=== PATIENT | female | born 1990 | race Two or more races ===

== ENCOUNTER 2017-05-15 17:26 | Emergency (ER) | payer OTHER ==
[2017-05-15 17:49] VITALS: BP 131/75; PULSE 75; RESP 18; TEMP 98.6
--- NOTE | 2017-05-15 18:01 | ED ---
General Adult HPI - General Chief complaint: ENT Stated complaint: Sore throat, fever Time Seen by Provider: 05/15/17 17:40 - History of Present Illness Initial comments: This is a 26-year-old female who presents to the emergency department today with chief complaint of sore throat. Patient states that last Friday she tested positive for strep throat at an urgent care. They treated her with amoxicillin. Patient states she was not feeling any better and returned to urgent care on Friday. They switched her antibiotic to azithromycin and prescribed prednisone 20 mg for 5 days. Patient presents today because she is not feeling any better. She continues to have a severe sore throat and fevers. She also complains of ear pain, nausea, vomiting and diarrhea and myalgias. Patient reports she has been unable to eat and has lost 10 pounds within the last week. Denies chest pain, shortness of breath, abdominal pain, dysuria or hematuria, numbness or tingling, headache or vision changes. - Related Data Home Medications Medication Instructions Recorded Confirmed Pnv,Calcium 72/Iron/Folic Acid 1 each PO 06/07/15 06/07/15 [ Plus Tablet] Previous Rx's Medication Instructions Recorded Acetaminophen-Codeine 300-30mg 1 each PO Q4HR PRN #30 tab 06/11/15 [Tylenol w/codeine #3] Ibuprofen [Motrin] 600 mg PO Q6HR PRN #60 tab 06/11/15 Allergies Allergy/AdvReac Type Severity Reaction Status Date / Time No Known Allergies Allergy Verified 05/15/17 17:49 Review of Systems ROS Statement: Those systems with pertinent positive or pertinent negative responses have been documented in the HPI. ROS Other: All systems not noted in ROS Statement are negative. 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 HEENT: Head atraumatic, normocephalic. Pupils are equal, round and reactive to light. Extraocular movements intact. Posterior oropharynx erythematous with tonsillar swelling and exudates present. Neck: Supple. Normal ROM. Tender anterior and posterior cervical adenopathy. Cardiovascular: Regular rate and rhythm. No murmurs, rubs or gallops. Chest symmetrical. Respiratory: Lungs clear to auscultation bilaterally. No wheezes, rales or rhonchi. Normal respiratory effort with no use of accessory muscles. Abdomen: Soft, non-tender, non-distended. No rigidity, rebound or guarding. Normal bowel sounds in all 4 quadrants. Musculoskeletal: Normal ROM, no tenderness. Pulses 2+ equal and palpable bilaterally. Skin: [place], warm and dry without rashes or lesions. Neurological: Alert and oriented x3. CN II-XII grossly intact. Speech is fluent and answers are appropriate. No focal neuro deficits. Psychiatric: Normal mood and affect. No overt signs of depression or anxiety noted. Course Vital Signs 05/15/17 17:46 Temperature 98.6 F Pulse Rate 75 Respiratory 18 Rate Blood Pressure 131/75 O2 Sat by Pulse 98 Oximetry Medical Decision Making - Medical Decision Making Group A rapid strep test was negative. This case was discussed with Dr. Ramos , attending physician. Patient will receive IM penicillin G. This medication will be administered in the event that group A strep is positive. Patient will be discharged home. Patient is in agreement to treatment and all questions were answered. - Lab Data Lab Results 05/15/17 Range/Units 17:53 Group A Strep Rapid Negative (Negative) Disposition Clinical Impression: Acute pharyngitis Disposition: HOME SELF-CARE Condition: Good Instructions: Pharyngitis (ED) Additional Instructions: Please follow up with primary care provider within 1-2 days. Return to emergency department if symptoms should worsen or any concerns arise. Referrals: None,Stated [REFERRING] - 1-2 days Time of Disposition: 18:13
[2017-05-15] MEDS ORDERED: PENICILLIN G BENZATHINE 1,200,000 UNIT/2 ML SYRINGE IM STA (18:21)
== END 2017-05-15 18:54 | disposition home or self-care (01) ==
LOC: EC 17:26
DX: J02.9 Acute pharyngitis, unspecified (principal); Z87.891 Personal history of nicotine dependence; Z79.899 Other long term (current) drug therapy
CPT/HCPCS: 99283 ×2; 96372 ×2; 87081; 87430; J0561

== ENCOUNTER 2018-10-03 15:56 | Observation (INO) | payer OTHER ==
[2018-10-03] MEDS ORDERED: FAMOTIDINE 20 MG/2 ML VIAL IV STA (16:24)
--- NOTE | 2018-10-03 16:30 | ED ---
Abdominal Pain HPI - General Chief Complaint: Abdominal Pain Stated Complaint: Abd and back pain Time Seen by Provider: 10/03/18 16:13 Source: patient Mode of arrival: ambulatory Limitations: no limitations - History of Present Illness Initial Comments: 28 yo female presenting with right upper quadrant sharp stabbing abdominal pain that radiates bilaterally to her flanks, that has been present intermittently for the past 6 months, is worsened by food, and is associated with nausea vomiting and diarrhea. She states currently has no pain or nausea or diarrhea but states that her mother recently had her gallbladder out and her symptoms were similar. She admits to a remote history of a fever 1 month prior but has been afebrile recently. Last menstrual period was 2 weeks ago. She denies any concern for . Denies any history of inflammatory bowel disease. Denies any chest pain or short of breath. States the pain has been increasing in frequency and severity and today it was the worse it's ever been. - Related Data Home Medications Medication Instructions Recorded Confirmed No Known Home Medications 10/03/18 10/03/18 Allergies Allergy/AdvReac Type Severity Reaction Status Date / Time No Known Allergies Allergy Verified 10/03/18 16:28 Review of Systems ROS Statement: Those systems with pertinent positive or pertinent negative responses have been documented in the HPI. Review of Systems Constitutional: Denies fever, chills Eyes: Denies change in vision, Denies pain Ears, nose, mouth, throat: Denies headaches, Denies sore throat Cardiovascular: Denies chest pain. Denies palpitations Respiratory: Denies shortness of breath, Denies cough Gastrointestinal: Positive abdominal pain. Denies nausea, vomiting, diarrhea. Genitourinary: Denies hematuria, Denies infections Musculoskeletal: Denies pain, Denies swelling Integumentary: Denies rash Neurological: Denies headache, focal weakness, focal numbness Psychiatric: Denies anxiety, Denies depression Hematologic/Lymphatic: Denies easy bleeding or bruising ROS Other: All systems not noted in ROS Statement are negative. 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 History of Any Multi-Drug Resistant Organisms: None Reported Past Surgical History: Section Additional Past Surgical History / Comment(s): D&C Past Anesthesia/Blood Transfusion Reactions: No Reported Reaction Past Psychological History: No Psychological Hx Reported Smoking Status: Former smoker Past Alcohol Use History: None Reported Past Drug Use History: None Reported - Past Family History Father Family Medical History: Blood Disorder Additional Family Medical History / Comment(s): Heart disease General Exam - General Exam Comments Initial Comments: General: Awake, alert, No acute Distress HENT: Normocephalic. Atraumatic Eyes: PERRL. EOMI. No scleral icterus. No injected conjunctiva Neck: Full ROM Chest/Lungs: Clear to auscultation bilaterally. No wheezing, rhonchi, or rales Cardiac: Regular rate, rhythm. No murmurs or rubs Abdomen/GI: Soft, nondistended. No rebound, guarding, or rigidity. Positive Johnson sign. Musculoskeletal: Full ROM Skin: Warm, dry, intact Neurologic: A/Ox3, no weakness, no sensory deficit, no abnormal gait, no coordination deficit Limitations: no limitations Course Vital Signs 10/03/18 10/03/18 10/03/18 16:00 18:17 18:47 Temperature 97.4 F L 98.7 F Pulse Rate 90 77 83 Respiratory 18 16 18 Rate Blood Pressure 114/67 114/55 113/79 O2 Sat by Pulse 99 100 98 Oximetry Medical Decision Making - Medical Decision Making 28-year-old female presenting with intermittent right upper quadrant abdominal pain. Initial exam the patient is awake alert and is in no acute distress her vital signs are stable her laboratory workup is unremarkable. Her ultrasound showed a thickened gallbladder with pericholecystic fluid. At this time the patient requires admission for acute cholecystitis. She was given 1 g of Rocephin. I spoke with Dr. Tapia who is agreeable to admission. Patient to be NPO after midnight and CMP ordered for am. - Lab Data Result diagrams: 10/03/18 16:55 10/03/18 16:55 Lab Results 10/03/18 10/03/18 10/03/18 Range/Units 16:55 16:55 16:57 WBC 7.9 (3.8-10.6) k/uL RBC 4.74 (3.80-5.40) m/uL Hgb 14.4 (11.4-16.0) gm/dL Hct 44.6 (34.0-46.0) % MCV 94.1 (80.0-100.0) fL MCH 30.4 (25.0-35.0) pg MCHC 32.3 (31.0-37.0) g/dL RDW 12.6 (11.5-15.5) % Plt Count 148 L (150-450) k/uL Neutrophils % 63 % Lymphocytes % 27 % Monocytes % 4 % Eosinophils % 4 % Basophils % 1 % Neutrophils # 5.0 (1.3-7.7) k/uL Lymphocytes # 2.1 (1.0-4.8) k/uL Monocytes # 0.3 (0-1.0) k/uL Eosinophils # 0.4 (0-0.7) k/uL Basophils # 0.1 (0-0.2) k/uL PT 10.1 (9.0-12.0) sec INR 0.9 (<1.2) APTT 26.8 (22.0-30.0) sec Sodium 139 (137-145) mmol/L Potassium 4.8 (3.5-5.1) mmol/L Chloride 104 (98-107) mmol/L Carbon Dioxide 27 (22-30) mmol/L Anion Gap 8 mmol/L BUN 15 (7-17) mg/dL Creatinine 0.77 (0.52-1.04) mg/dL Est GFR (CKD-EPI)AfAm >90 (>60 ml/min/1.73 sqM) Est GFR (CKD-EPI)NonAf >90 (>60 ml/min/1.73 sqM) Glucose 86 (74-99) mg/dL Calcium 9.6 (8.4-10.2) mg/dL Total Bilirubin 0.6 (0.2-1.3) mg/dL Conjugated Bilirubin 0.0 (0.0-0.3) mg/dL Unconjugated Bilirubin 0.4 (0.0-1.1) mg/dL Delta Bilirubin 0.2 (0.0-0.2) mg/dL AST 17 (14-36) U/L ALT 23 (9-52) U/L Alkaline Phosphatase 51 (38-126) U/L Total Protein 7.2 (6.3-8.2) g/dL Albumin 4.3 (3.5-5.0) g/dL Lipase 127 (23-300) U/L HCG, Qual Not Detected Disposition Clinical Impression: Cholecystitis Disposition: ADMITTED IP TO THIS [facility] Condition: Good Decision Date: 10/03/18 Decision Time: 18:07
[2018-10-03 17:17] LABS: Basophils # (A) 0.1 k/uL (0-0.2); Basophils % (A) 1 %; Eosinophils # (A) 0.4 k/uL (0-0.7); Eosinophils % (A) 4 %; HCT 44.6 % (34.0-46.0); HGB 14.4 gm/dL (11.4-16.0); Lymphocytes # (A) 2.1 k/uL (1.0-4.8); Lymphocytes % (A) 27 %; MCH 30.4 pg (25.0-35.0); MCHC 32.3 g/dL (31.0-37.0); MCV 94.1 fL (80.0-100.0); Mean Platelet Volume 7.2; Monocytes # (A) 0.3 k/uL (0-1.0); Monocytes % (A) 4 %; Neutrophils % (A) 63 %; Platelet Count 148 k/uL (150-450); RBC 4.74 m/uL (3.80-5.40); RDW 12.6 % (11.5-15.5); WBC 7.9 k/uL (3.8-10.6)
--- NOTE | 2018-10-03 17:25 | US ---
EXAMINATION TYPE: US gallbladder DATE OF EXAM: 10/03/2018 COMPARISON: NONE CLINICAL HISTORY: Pain. RUQ pain on and off for months, NPO, EXAM MEASUREMENTS: Liver Length: 16.0 cm Gallbladder Wall: 0.6 cm CHD: 0.5 cm Right Kidney: 10.9 x 5.8 x 4.5 cm Pancreas: wnl Liver: wnl Gallbladder: Circumferentially thickened gallbladder wall measuring up to 6 cm. Trace amount of [place] cholecystic fluid. Evidence for sonographic Johnson's sign: neg CBD: Obscured by overlying bowel gas IMPRESSION: Minimally thickened gallbladder wall with a trace amount of pericholecystic fluid. Sonographic Johnson 's sign was negative. These findings are suggestive of but not definitive for acute cholecystitis. HI DA scan would be confirmatory.
[2018-10-03 17:31] LABS: HCG,Qualitative Serum Not Detected
[2018-10-03 17:35] LABS: ALT 23 U/L (9-52); AST 17 U/L (14-36); Albumin 4.3 g/dL (3.5-5.0); Alkaline Phosphatase 51 U/L (38-126); Anion Gap 8 mmol/L; Bilirubin, Delta 0.2 mg/dL (0.0-0.2); Bilirubin,Unconjugated 0.4 mg/dL (0.0-1.1); Blood Urea Nitrogen 15 mg/dL (7-17); Calcium 9.6 mg/dL (8.4-10.2); Carbon Dioxide 27 mmol/L (22-30); Chloride 104 mmol/L (98-107); Glucose 86 mg/dL (74-99); Lipase 127 U/L (23-300); Potassium 4.8 mmol/L (3.5-5.1); Sodium 139 mmol/L (137-145); Total Bilirubin 0.6 mg/dL (0.2-1.3); Total Protein 7.2 g/dL (6.3-8.2)
[2018-10-03] MEDS ORDERED: NALOXONE 0.4 MG/ML 1 ML VIAL IV PRN (18:08)
[2018-10-03] MEDS ORDERED: KETOROLAC 30 MG/ML 1 ML VIAL IVP PRN (18:08)
[2018-10-03] MEDS ORDERED: ACETAMINOPHEN TAB 325 MG TAB PO PRN (18:08)
[2018-10-03 19:03] LABS: INR 0.9 (<1.2); Partial Thromboplastin Time 26.8 sec (22.0-30.0); Prothrombin Time 10.1 sec (9.0-12.0)
[2018-10-03 19:35] VITALS: BMI 25.8
[2018-10-03] MEDS ORDERED: HEPARIN SODIUM,PORCINE 5,000 UNIT/ML 1 ML VIAL SQ STA (20:01)
[2018-10-03] MEDS: SODIUM CHLORIDE 0.9% 1,000 ML IV SCH (20:29)
[2018-10-03] MEDS: HYDROmorphone 1 MG/ML 1 ML SYRINGE IVP PRN (21:17)
[2018-10-04] MEDS: HYDROmorphone 1 MG/ML 1 ML SYRINGE IVP PRN ×6 (04:40→21:55)
[2018-10-04 05:55] LABS: ALT 19 U/L (9-52); AST 31 U/L (14-36); Albumin 3.4 g/dL (3.5-5.0); Alkaline Phosphatase 50 U/L (38-126); Blood Urea Nitrogen 13 mg/dL (7-17); Calcium 8.9 mg/dL (8.4-10.2); Chloride 112 mmol/L (98-107); Glucose 88 mg/dL (74-99); Potassium 4.3 mmol/L (3.5-5.1); Sodium 139 mmol/L (137-145); Total Bilirubin 0.7 mg/dL (0.2-1.3); Total Protein 6.1 g/dL (6.3-8.2)
[2018-10-04 05:56] LABS: Anion Gap 6 mmol/L; Carbon Dioxide 21 mmol/L (22-30)
[2018-10-04 06:07] LABS: Basophils % (A) 1 %; Eosinophils # (A) 0.4 k/uL (0-0.7); Eosinophils % (A) 5 %; HCT 40.4 % (34.0-46.0); HGB 13.2 gm/dL (11.4-16.0); Lymphocytes # (A) 3.2 k/uL (1.0-4.8); Lymphocytes % (A) 39 %; MCHC 32.8 g/dL (31.0-37.0); MCV 94.7 fL (80.0-100.0); Mean Platelet Volume 6.9; Monocytes # (A) 0.3 k/uL (0-1.0); Monocytes % (A) 4 %; Neutrophils # (A) 4.2 k/uL (1.3-7.7); Neutrophils % (A) 51 %; Platelet Count 253 k/uL (150-450); RBC 4.27 m/uL (3.80-5.40); RDW 12.7 % (11.5-15.5); WBC 8.3 k/uL (3.8-10.6)
[2018-10-04] MEDS: SODIUM CHLORIDE 0.9% 1,000 ML IV SCH ×2 (08:04→16:01)
[2018-10-04] MEDS: ONDANSETRON 4 MG/2 ML VIAL IVP PRN ×2 (08:04→16:00)
[2018-10-04] MEDS: ENOXAPARIN 30 MG/0.3 ML SYRINGE SQ SCH (08:05)
[2018-10-04] MEDS ORDERED: BUPIVACAINE (PF) 0.25% 30 ML VIAL SQ ONE ×3 (08:23→09:34)
[2018-10-04] MEDS ORDERED: ONDANSETRON 4 MG/2 ML VIAL ONE (09:10)
[2018-10-04] MEDS ORDERED: MIDAZOLAM 2 MG/2 ML VIAL ONE (09:10)
[2018-10-04] MEDS ORDERED: GLYCOPYRROLATE 0.2 MG/ML 2 ML VIAL ONE (09:10)
[2018-10-04] MEDS ORDERED: fentaNYL (PF) 50 MCG/ML 2 ML AMP ONE (09:10)
[2018-10-04] MEDS ORDERED: DEXAMETHASONE SOD PHOS (MDV) 100 MG/10 ML VIAL ONE (09:10)
[2018-10-04] MEDS ORDERED: ROCURONIUM BROMIDE 10 MG/ML 10 ML VIAL IV ONE (09:10)
[2018-10-04] MEDS ORDERED: SUCCINYLCHOLINE CHLORIDE 100 MG/5 ML SYR IV ONE (09:10)
[2018-10-04] MEDS ORDERED: NEOSTIGMINE 1 MG/ML 10 ML VIAL ONE (09:10)
[2018-10-04] MEDS ORDERED: LIDOCAINE 1% INJ 10MG/ML (20 ML MDV) ONE (09:10)
[2018-10-04] MEDS ORDERED: PROPOFOL 10 MG/ML 20 ML VIAL IV ONE (09:10)
--- NOTE | 2018-10-04 09:16 | P.GSHP ---
History of Present Illness H&P Date: 10/04/18 Patient has had complaints of intermittent right upper quadrant and epigastric abdominal pain over the last several months. Pain radiates to the back. Patient's mother had similar symptoms and had her gallbladder removed recently. Some nausea but no vomiting. No change in the color of her skin urine or stool. Pain will usually last as long as 2 days. Labs checked last night and again this morning normal. Ultrasound shows a thickened gallbladder wall with some pericholecystic fluid. No definite stones seen. Patient says it was quite painful during ultrasound although report says sonographic Johnson sign negative. Patient's pain is improved today. 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 History of Any Multi-Drug Resistant Organisms: None Reported Past Surgical History: Section Additional Past Surgical History / Comment(s): D&C Past Anesthesia/Blood Transfusion Reactions: No Reported Reaction Past Psychological History: No Psychological Hx Reported Smoking Status: Former smoker Past Alcohol Use History: None Reported Past Drug Use History: None Reported - Past Family History Father Family Medical History: Blood Disorder Additional Family Medical History / Comment(s): Heart disease Medications and Allergies Home Medications Medication Instructions Recorded Confirmed Type No Known Home Medications 10/03/18 10/03/18 History Allergies Allergy/AdvReac Type Severity Reaction Status Date / Time No Known Allergies Allergy Verified 10/03/18 16:28 Surgical - Exam Vital Signs Temp Pulse Resp BP Pulse Ox 97.4 F L 90 18 114/67 99 10/03/18 16:00 10/03/18 16:00 10/03/18 16:00 10/03/18 16:00 10/03/18 16:00 Physical exam: General: Well-developed, well-nourished HEENT: Normocephalic, sclerae nonicteric Abdomen: Mild right upper quadrant tenderness, nondistended Extremities: No edema Neuro: Alert and oriented Results - Labs 10/04/18 05:30 10/04/18 05:30 Abnormal Lab Results - Last 24 Hours (Table) 10/03/18 10/04/18 Range/Units 16:55 05:30 Plt Count 148 L (150-450) k/uL Chloride 112 H (98-107) mmol/L Carbon Dioxide 21 L (22-30) mmol/L Total Protein 6.1 L (6.3-8.2) g/dL Albumin 3.4 L (3.5-5.0) g/dL Diabetes panel 10/03/18 10/04/18 Range/Units 16:55 05:30 Sodium 139 139 (137-145) mmol/L Potassium 4.8 4.3 (3.5-5.1) mmol/L Chloride 104 112 H (98-107) mmol/L Carbon Dioxide 27 21 L (22-30) mmol/L BUN 15 13 (7-17) mg/dL Creatinine 0.77 0.65 (0.52-1.04) mg/dL Glucose 86 88 (74-99) mg/dL Calcium 9.6 8.9 (8.4-10.2) mg/dL AST 17 31 (14-36) U/L ALT 23 19 (9-52) U/L Alkaline Phosphatase 51 50 (38-126) U/L Total Protein 7.2 6.1 L (6.3-8.2) g/dL Albumin 4.3 3.4 L (3.5-5.0) g/dL Calcium panel 10/03/18 10/04/18 Range/Units 16:55 05:30 Calcium 9.6 8.9 (8.4-10.2) mg/dL Albumin 4.3 3.4 L (3.5-5.0) g/dL Pituitary panel 10/03/18 10/04/18 Range/Units 16:55 05:30 Sodium 139 139 (137-145) mmol/L Potassium 4.8 4.3 (3.5-5.1) mmol/L Chloride 104 112 H (98-107) mmol/L Carbon Dioxide 27 21 L (22-30) mmol/L BUN 15 13 (7-17) mg/dL Creatinine 0.77 0.65 (0.52-1.04) mg/dL Glucose 86 88 (74-99) mg/dL Calcium 9.6 8.9 (8.4-10.2) mg/dL Adrenal panel 10/03/18 10/04/18 Range/Units 16:55 05:30 Sodium 139 139 (137-145) mmol/L Potassium 4.8 4.3 (3.5-5.1) mmol/L Chloride 104 112 H (98-107) mmol/L Carbon Dioxide 27 21 L (22-30) mmol/L BUN 15 13 (7-17) mg/dL Creatinine 0.77 0.65 (0.52-1.04) mg/dL Glucose 86 88 (74-99) mg/dL Calcium 9.6 8.9 (8.4-10.2) mg/dL Total Bilirubin 0.6 0.7 (0.2-1.3) mg/dL AST 17 31 (14-36) U/L ALT 23 19 (9-52) U/L Alkaline Phosphatase 51 50 (38-126) U/L Total Protein 7.2 6.1 L (6.3-8.2) g/dL Albumin 4.3 3.4 L (3.5-5.0) g/dL Assessment and Plan (1) Acute acalculous cholecystitis Narrative/Plan: Options reviewed with the patient and her family. Given the ultrasound findings HIDA scan likely will not change our plans even if the HIDA scan appeared normal. We'll proceed with laparoscopic cholecystectomy at this time. Risks of bleeding, infection, bile leak, bile duct injury, retained common bile duct stone, trocar injury, conversion to an open procedure, hernia, anesthesia related complications were reviewed. The patient understands and wishes to proceed. Patient has a history of factor V deficiency. Heparin was given last night and Lovenox this morning. Additional risks of clotting issues reviewed. Current Visit: Yes Status: Acute Code(s): K81.0 - ACUTE CHOLECYSTITIS SNOMED Code(s): 03263247
[2018-10-04] MEDS ORDERED: IV FLUID CONTINUATION 1,000 ML IV ONE (09:18)
[2018-10-04] MEDS ORDERED: LACTATED RINGERS 1,000 ML IV ONE ×4 (09:38→10:46)
[2018-10-04] MEDS ORDERED: diphenhydrAMINE 50 MG/ML 1 ML VIAL IVP ONE (10:35)
[2018-10-04] MEDS: HYDROmorphone 1 MG/ML 1 ML SYRINGE IVP ONE ×2 (10:36→10:45)
--- NOTE | 2018-10-04 11:05 | P.OP ---
Date of Procedure: 10/04/18 Procedure(s) Performed: PREOPERATIVE DIAGNOSIS: Acute acalculous cholecystitis POSTOPERATIVE DIAGNOSIS: Same PROCEDURE: Laparoscopic cholecystectomy SURGEON: Willie EBL: Minimal see anesthesia record ANESTHESIA: Gen. COMPLICATIONS: None OPERATIVE PROCEDURE: The patient was brought and placed on the operating room table in the supine position. The patient was placed under general anesthesia at that time. The abdomen was prepped and draped in the usual sterile fashion. A small vertical infraumbilical incision was made. The fascia was grasped with the Mario forceps. The fascia was retracted anteriorly. The Veress needle was advanced into the peritoneal cavity. The saline drop test was normal. Insufflation took place up to 15 mmHg. A 5 mm optical trocar was advanced and the peritoneal cavity. 2 additional 5 mm trochars were placed in the right upper quadrant under direct visualization. A 12 mm trocar was advanced into the epigastric incision site. The gallbladder was retracted superiorly and laterally. The peritoneum overlying the infundibulum was bluntly dissected. The patient's cystic duct was visualized. The junction between the cystic duct common and hepatic duct was identified. The cystic duct was then divided after placement of 3 12 mm clips on the patient's side and one on the specimen side. The cystic artery was identified and clipped as well. A small vessel was seen along the gallbladder fossa and clipped as well. The gallbladder was then removed from the liver bed using electrocautery. The patient had significant edema between the gallbladder and the liver. The gallbladder was then removed from the epigastric trocar site with an Endo Catch bag. The gallbladder fossa was irrigated with saline. There was no evidence of any bleeding or biliary drainage seen. The fascia at the 12 millimeter site was closed using a Chnio-Judith 0 Vicryl stitch. The trochars were then removed. The skin at all 4 sites was closed using a 4-0 Monocryl stitch. Skin glue was utilized on the incision sites. At the end of this procedure the sponge and needle counts were correct. The gallbladder was opened on the back table. No stones were seen. DISPOSITION: Stable to the recovery room
[2018-10-04 14:06] VITALS: RESP 16
[2018-10-04] MEDS: HYDROcodone/APAP 5-325MG 1 EACH TAB PO PRN ×2 (16:00→19:58)
[2018-10-05] MEDS: SODIUM CHLORIDE 0.9% 1,000 ML IV SCH (00:12)
[2018-10-05] MEDS: ONDANSETRON 4 MG/2 ML VIAL IVP PRN (00:39)
[2018-10-05] MEDS: HYDROmorphone 1 MG/ML 1 ML SYRINGE IVP PRN (01:20)
[2018-10-05] MEDS: HYDROcodone/APAP 5-325MG 1 EACH TAB PO PRN (05:16)
[2018-10-05 08:00] VITALS: BP 109/63; PULSE 66; TEMP 98.3
[2018-10-05] MEDS: ENOXAPARIN 30 MG/0.3 ML SYRINGE SQ SCH (08:33)
--- NOTE | 2018-10-05 12:31 | P.DS ---
Providers Date of admission: 10/03/18 18:08 Expected date of discharge: 10/05/18 Attending physician: Vin Tapia Primary care physician: Adriana Esparza Hospital Course: 28 year old female who presented to the emergency room with abdominal pain. Ultrasound showed thickened gallbladder wall with some pericholecystic fluid. Patient underwent laparoscopic cholecystectomy on 10/04/2018. Patient did well postoperatively without any immediate complications. Pain has been tolerable. Tolerating PO intake. Denies nausea or vomiting. She was discharged home today in stable condition. Please see EMR for further hospital course details. DISCHARGE DIAGNOSIS: 1. Acute acalculous cholecystitis, status post laparoscopic cholecystectomy Nurse practitioner note has been reviewed by physician. Signing provider agrees with the documented findings, assessment, and plan of care. Patient Condition at Discharge: Stable Plan - Discharge Summary Discharge Rx Participant: No New Discharge Prescriptions: New Hydrocodone/Acetaminophen [[place] 5-325] 1 tab PO Q6HR PRN 3 Days #10 tab PRN Reason: Pain Discharge Medication List Hydrocodone/Acetaminophen [[place] 5-325] 1 tab PO Q6HR PRN 3 Days #10 tab [Rx] Follow up Appointment(s)/Referral(s): Vin Tapia MD [Medical Doctor] - 10/14/18 1:00 pm (Bring drivers license and insurance card with you to appt. Paper work will need to be filled out at the office) Adriana Esparza DO [Primary Care Provider] - 1-2 days Patient Instructions/Handouts: Low Fat Diet (DC) Activity/Diet/Wound Care/Special Instructions: Continue regular low fat diet, fluids are always encouraged. May shower 2018, no tub baths swimming pools or hot tubs until cleared by physician. Do not pick at or pull off glue at incision site they will fall off on their own. No heavy lifting pushing or pulling until cleared by physician. No driving while taking narcotic pain medication. Follow up with physicians as directed. Call physician with any questions comments concerns worsening returning symptoms , pain not controlled by pain medication, not tolerating diet or fluids, pus or smelly discharge from incision sites, fever 101.1 or higher or any concerns. Last received norco at 0515 continue using incentive spiropmtery at home. Discharge Disposition: HOME SELF-CARE
== END 2018-10-05 09:41 | disposition home or self-care (01) ==
LOC: EC 15:56 → INTOOBSV 18:08 → 6PED 18:08
PROVIDERS: ADMIT Surgery; ATTEND Surgery
DX: K81.0 Acute cholecystitis (principal); K81.1 Chronic cholecystitis; D68.2 Hereditary deficiency of other clotting factors; Z87.891 Personal history of nicotine dependence; Z83.2 Family history of diseases of the blood and blood-forming organs and certain disorders involving the immune mechanism; Z82.49 Family history of ischemic heart disease and other diseases of the circulatory system; Z83.79 Family history of other diseases of the digestive system
CPT/HCPCS: 47562; 96365; 96375; 99285; 36415; 88304; 80053; 80048; 80076; 83690; 85025 ×2; 85610; 85730; 84703; 76705; G0378 ×3; J2250; J1200; J1644; J2710; J2405 ×2; J2001; J0696; J3010; J1650; J1170 ×3; J1100; J0330; J2704

== ENCOUNTER 2020-01-06 14:38 | Day surgery (SDC) | payer OTHER ==
[2020-01-05 15:00] VITALS: BMI 28.1
--- NOTE | 2020-01-06 11:39 | P.HPOB ---
History of Present Illness H&P Date: 01/06/20 Chief Complaint: missed AB, 11 weeks This is a 29 yo at 11 weeks of gestation that presents to the office yesterday for ultrasound. NO heart tones were visualized on US, measuring 11 6/7 days. she denies any VB, cramping at this time. she has a h/o prior c section with her last . she has a h/o MTHFr as well and was taking folgard/folbee for this as well. Review of Systems Constitutional: Denies chills, Denies fatigue, Denies fever Ears, nose, mouth and throat: Denies headache Cardiovascular: Denies edema Respiratory: Denies dyspnea Gastrointestinal: Denies constipation, Denies diarrhea, Denies nausea, Denies vomiting Genitourinary: Reports Past Medical History Past Medical History: Blood Disorder Additional Past Medical History / Comment(s): Factor V. NO HEART BEAT ON ULTRASOUND 01/04/20 History of Any Multi-Drug Resistant Organisms: None Reported Past Surgical History: Section Additional Past Surgical History / Comment(s): D&C Past Anesthesia/Blood Transfusion Reactions: No Reported Reaction Smoking Status: Former smoker - Past Family History Father Family Medical History: Blood Disorder Additional Family Medical History / Comment(s): Heart disease Medications and Allergies Home Medications Medication Instructions Recorded Confirmed Type No Known Home Medications 01/05/20 01/05/20 History Allergies Allergy/AdvReac Type Severity Reaction Status Date / Time No Known Allergies Allergy Verified 01/05/20 14:43 Exam Osteopathic Statement: *. No significant issues noted on an osteopathic structural exam other than those noted in the History and Physical/Consult. targeted physical exam today in general this is a well nourished well developed female, tearful breathing is noted to be non labored heart has a RRR, abdomen is soft Assessment and Plan (1) Missed ab Status: Acute Code(s): O02.1 - MISSED SNOMED Code(s): 18894725 Plan: discussed suction d and c given gestation age. she elects to proceed procedure is reviewed with pt and questions answered.
[~2020-01-06 14:38] MED LIST: DEXAMETHASONE SOD PHOSPHATE 10 MG/ML 1 ML VIAL IV ONE; HYDROmorphone 0.5 MG/0.5 ML SYRINGE IVP PRN; LACTATED RINGERS 1,000 ML IV SCH; LIDOCAINE 1% (10MG/ML) FOR IV START INTRADERMA PRN; ONDANSETRON 4 MG/2 ML VIAL IVP ONE; Pre Op ABX Message 1 EACH MISC MISCELLANE ONE; SCOPOLAMINE 1.5MG/72HR PATCH TRANSDERM ONE
[2020-01-06 15:18] LABS: Basophils % (A) 0 %; Eosinophils # (A) 0.2 k/uL (0-0.7); Eosinophils % (A) 1 %; HCT 41.7 % (34.0-46.0); HGB 13.6 gm/dL (11.4-16.0); Lymphocytes # (A) 2.8 k/uL (1.0-4.8); Lymphocytes % (A) 19 %; MCHC 32.7 g/dL (31.0-37.0); MCV 91.9 fL (80.0-100.0); Mean Platelet Volume 7.5; Monocytes # (A) 0.5 k/uL (0-1.0); Monocytes % (A) 4 %; Neutrophils % (A) 74 %; Platelet Count 334 k/uL (150-450); RBC 4.54 m/uL (3.80-5.40); RDW 12.8 % (11.5-15.5); WBC 14.8 k/uL (3.8-10.6)
[2020-01-06] MEDS ORDERED: PROPOFOL 10 MG/ML 20 ML VIAL IV ONE (15:43)
[2020-01-06] MEDS ORDERED: fentaNYL (PF) 50 MCG/ML 2 ML AMP ONE (15:43)
[2020-01-06] MEDS ORDERED: SUCCINYLCHOLINE CHLORIDE 100 MG/5 ML SYR IV ONE (15:43)
[2020-01-06] MEDS ORDERED: METHYLERGONOVINE 0.2 MG/ML 1 ML AMP ONE (15:43)
[2020-01-06] MEDS ORDERED: MIDAZOLAM 2 MG/2 ML VIAL ONE (15:43)
[2020-01-06] MEDS ORDERED: LIDOCAINE 1% INJ 10MG/ML (20 ML MDV) ONE (15:43)
[2020-01-06] MEDS ORDERED: METHYLERGONOVINE 0.2 MG/ML 1 ML AMP IM STA (16:15)
[2020-01-06 16:45] VITALS: TEMP 97.6
--- NOTE | 2020-01-06 16:58 | P.OP ---
Date of Procedure: 01/06/20 Preoperative Diagnosis: Missed AB, 11 weeks Postoperative Diagnosis: Same Procedure(s) Performed: Suction dilation and curettage Anesthesia: MAC Surgeon: Rosalva Ochoa Estimated Blood Loss (ml): 100 IV fluids (ml): 600 Urine output (ml): 100 Pathology: other (Uterine contents) Condition: stable Disposition: PACU Indications for Procedure: This 29-year-old 2 para 1 presented to the office for ultrasound evaluation of the , no heart tones were noted. Patient was counseled on suction D&C given gestational age she agreed and was taken to the operating suite. Operative Findings: Large amount approximate conception were obtained. Description of Procedure: Patient was seen in the preoperative area and procedure is reviewed and questions are answered. Patient was taken back to the operating suite where general anesthesia was obtained without difficulty by the anesthesia department. She was prepped and draped in normal sterile fashion in the dorsal lithotomy position. I [place] catheter was used to drain the bladder of clear yellow urine. A weighted speculums was placed in the posterior vaginal vault, and the anterior lip of the cervix is visualized and grasped with a single-tooth tenaculum. Endocervical canal was then serially dilated dilated to 18-[place]rainian. A 9 mm curved suction curette was placed through the cervix and toward the e ndometrial cavity suction was activated and the uterus cleared of a large amount of products of conception. Approximate 2 further passes were used to obtain more tissue. At this time a gentle curettage was performed and the uterus was noted to be empty of products of conception. One additional pass was used to ensure the uterus had clamped down and bleeding was appropriate. The single tooth tenaculum was taken off of the anterior lip the cervix hemostasis was appreciated. Minimal bleeding was noted from the uterus at this time. Methergine was given during this procedure patient tolerated procedure well and all counts were noted be correct 2.
[2020-01-06 17:16] VITALS: RESP 16
[2020-01-06 18:15] VITALS: BP 114/80; PULSE 96
== END 2020-01-06 18:19 | disposition home or self-care (01) ==
LOC: OR 14:38
PROVIDERS: ATTEND Obstetrics & Gynecology Obstetrics
DX: O02.1 Missed abortion (principal); Z90.49 Acquired absence of other specified parts of digestive tract; Z98.891 History of uterine scar from previous surgery; Z87.891 Personal history of nicotine dependence; Z82.49 Family history of ischemic heart disease and other diseases of the circulatory system
CPT/HCPCS: 86900; 86901; 88305; 85025; 86850; 59820; J2250; J2210; J2001; J3010; J0330; J2704

== ENCOUNTER → 2020-06-20 | Outpatient (CLI) | payer OTHER ==
[2020-06-20 15:38] LABS: Basophils # (A) 0.1 k/uL (0-0.2); Basophils % (A) 1 %; Eosinophils # (A) 0.3 k/uL (0-0.7); Eosinophils % (A) 2 %; HCT 43.4 % (34.0-46.0); Lymphocytes # (A) 2.4 k/uL (1.0-4.8); Lymphocytes % (A) 20 %; MCH 30.1 pg (25.0-35.0); MCHC 32.3 g/dL (31.0-37.0); MCV 93.2 fL (80.0-100.0); Mean Platelet Volume 6.8; Monocytes # (A) 0.4 k/uL (0-1.0); Monocytes % (A) 3 %; Neutrophils # (A) 8.9 k/uL (1.3-7.7); Neutrophils % (A) 74 %; Platelet Count 365 k/uL (150-450); RBC 4.65 m/uL (3.80-5.40); RDW 12.9 % (11.5-15.5); WBC 12.1 k/uL (3.8-10.6)
== END | disposition home or self-care (01) ==
LOC: LABPAT 14:56
PROVIDERS: ATTEND Obstetrics & Gynecology Obstetrics
DX: Z01.818 Encounter for other preprocedural examination (principal); O02.1 Missed abortion
CPT/HCPCS: 36415; 85025

== ENCOUNTER 2020-06-21 15:00 | Day surgery (SDC) | payer OTHER ==
[~2020-06-21 15:00] MED LIST changes: -DEXAMETHASONE SOD PHOSPHATE 10 MG/ML 1 ML VIAL IV ONE; +DEXAMETHASONE SOD PHOSPHATE 4 MG/ML 1 ML VIAL IV ONE; -HYDROmorphone 0.5 MG/0.5 ML SYRINGE IVP PRN; -Pre Op ABX Message 1 EACH MISC MISCELLANE ONE; -SCOPOLAMINE 1.5MG/72HR PATCH TRANSDERM ONE
[2020-06-21] MEDS ORDERED: ONDANSETRON 4 MG/2 ML VIAL ONE ×2 (15:16→16:12)
[2020-06-21] MEDS ORDERED: SCOPOLAMINE 1.5MG/72HR PATCH TRANSDERM ONE (15:25)
[2020-06-21] MEDS ORDERED: LIDOCAINE 1% INJ 10MG/ML (20 ML MDV) ONE (16:12)
[2020-06-21] MEDS ORDERED: MIDAZOLAM 2 MG/2 ML VIAL ONE (16:12)
[2020-06-21] MEDS ORDERED: KETOROLAC 15 MG/ML 1 ML VIAL ONE (16:12)
[2020-06-21] MEDS ORDERED: fentaNYL (PF) 50 MCG/ML 2 ML AMP ONE (16:12)
[2020-06-21] MEDS ORDERED: PROPOFOL 10 MG/ML 20 ML VIAL IV ONE (16:12)
[2020-06-21] MEDS: HYDROmorphone 1 MG/ML 1 ML SYRINGE IVP ONE ×3 (17:01→17:30)
[2020-06-21 17:05] VITALS: RESP 16; TEMP 97.1
--- NOTE | 2020-06-21 17:06 | P.OP ---
Date of Procedure: 06/21/20 Preoperative Diagnosis: Missed AB Postoperative Diagnosis: Same Procedure(s) Performed: Suction dilation and curettage Anesthesia: MAC Surgeon: Rosalva Ochoa Estimated Blood Loss (ml): 5 IV fluids (ml): 200 Urine output (ml): 75 Pathology: other (Uterine contents) Condition: stable Disposition: PACU Indications for Procedure: Intrauterine measuring 8 weeks with no heart tones Operative Findings: Moderate amount of products of conception Description of Procedure: Patient is seen in the preoperative area and informed consent is obtained procedures reviewed. Patient states understanding and wishes to proceed. Patient was taken back to the operating suite where general anesthesia was obtained without difficulty by the anesthesia department. The patient was then prepped and draped in normal sterile fashion in the dorsal lithotomy position [place] catheter was then used to drain the bladder of clear yellow urine. A weighted speculum was placed in the posterior vaginal vault the interval of the cervix is visualized and grasped with a single-tooth tenaculum. The endocervical canal was then serially dilated. An 8 curved suction curette was then placed in the cervix toward then [place] cavity once suction was in the green zone a moderate amount of proximal of conception were cleared from the uterine cavity. 2 passes were used to clear the uterus of products of conception. A gentle curettage was performed and the uterus is noted to be empty. An additional past was used to insure the cavity was free of products of conception. The specimens and sent to pathology/[facility] for evaluation. (Patient did agree to genetic screening as this is her second miscarriage) At this time the single-tooth tenaculum was taken off of the anterior lip of the cervix used ASIS was appreciated. All counts are noted to be correct 2 patient was taken the recovery room awake in stable condition.
[2020-06-21] MEDS ORDERED: LACTATED RINGERS 1,000 ML IV ONE (17:37)
[2020-06-21 18:12] VITALS: BP 113/68; PULSE 81
== END 2020-06-21 18:18 | disposition home or self-care (01) ==
LOC: OR 15:00
PROVIDERS: ATTEND Obstetrics & Gynecology Obstetrics
DX: O02.1 Missed abortion (principal); O99.111 Other diseases of the blood and blood-forming organs and certain disorders involving the immune mechanism complicating pregnancy, first trimester; D68.51 Activated protein C resistance; O99.511 Diseases of the respiratory system complicating pregnancy, first trimester; J30.2 Other seasonal allergic rhinitis; Z3A.08 8 weeks gestation of pregnancy; Z87.59 Personal history of other complications of pregnancy, childbirth and the puerperium; Z98.890 Other specified postprocedural states; Z90.49 Acquired absence of other specified parts of digestive tract; Z79.82 Long term (current) use of aspirin; Z87.891 Personal history of nicotine dependence; Z86.73 Personal history of transient ischemic attack (TIA), and cerebral infarction without residual deficits; Z91.89 Other specified personal risk factors, not elsewhere classified; Z83.2 Family history of diseases of the blood and blood-forming organs and certain disorders involving the immune mechanism
CPT/HCPCS: 59820; 88305; J2250; J1100; J2405; J2001; J3010; J1170; J1885; J2704; 86850; 86900; 86901

== ENCOUNTER 2021-03-19 13:51 | Emergency (ER) | payer OTHER ==
[2021-03-19 14:10] LABS: Glucose,Whole Blood 89 mg/dL (75-99)
[2021-03-19 14:14] VITALS: TEMP 97.8
--- NOTE | 2021-03-19 14:29 | ED ---
General Adult HPI - General Chief complaint: Neuro Symptoms/Deficit Stated complaint: Left side facial droop Time Seen by Provider: 03/19/21 14:00 Source: patient, EMS, RN notes reviewed, old records reviewed Mode of arrival: EMS Limitations: no limitations - History of Present Illness Initial comments: This is a 30-year-old female presents emergency Department being 6 weeks . Patient states she noted that the right side of her face has drooping today. Patient denies any headache patient denies numbness weakness. Patient denies any recent fever or chills. Patient denies any speech disturbance. 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 Patient states she's had no problems in the past. Patient denies any other symptoms at this time. - Related Data Home Medications Medication Instructions Recorded Confirmed Aspirin [Adult Low Dose Aspirin EC] 81 mg PO 06/21/20 Allergies Allergy/AdvReac Type Severity Reaction Status Date / Time No Known Allergies Allergy Verified 01/06/20 15:11 Review of Systems ROS Statement: Those systems with pertinent positive or pertinent negative responses have been documented in the HPI. ROS Other: All systems not noted in ROS Statement are negative. Past Medical History Past Medical History: Blood Disorder Additional Past Medical History / Comment(s): Factor V. NO HEART BEAT ON ULTRASOUND 01/04/20 History of Any Multi-Drug Resistant Organisms: None Reported Past Surgical History: Section Additional Past Surgical History / Comment(s): D&C Past Anesthesia/Blood Transfusion Reactions: No Reported Reaction Past Psychological History: No Psychological Hx Reported Smoking Status: Never smoker Past Alcohol Use History: None Reported Past Drug Use History: None Reported - Past Family History Father Family Medical History: Blood Disorder Additional Family Medical History / Comment(s): Heart disease General Exam - General Exam Comments Initial Comments: GENERAL: Patient is well-developed and well-nourished. Patient is nontoxic and well- hydrated and is in no acute distress. ENT: Neck is soft and supple. No significant lymphadenopathy is noted. Oropharynx is clear. Moist mucous membranes. Neck has full range of motion without eliciting any pain. EYES: The sclera were anicteric and conjunctiva were pink and moist. Extraocular movements were intact and pupils were equal round and reactive to light. Eyelids were unremarkable. PULMONARY: Unlabored respirations. Good breath sounds bilaterally. No audible rales rhonchi or wheezing was noted. CARDIOVASCULAR: There is a regular rate and rhythm without any murmurs gallops or rubs. ABDOMEN: abdomen above the umbilicus SKIN: Skin is clear with no lesions or rashes and otherwise unremarkable. NEUROLOGIC: Patient is alert and oriented x3. Patient's forehead on the left did not move with her opening or closing her eyes.. Motor and sensory are also intact. Normal speech, volume and content. Symmetrical smile. MUSCULOSKELETAL: Normal extremities with adequate strength and full range of motion. LYMPHATICS: No significant lymphadenopathy is noted PSYCHIATRIC: Normal psychiatric evaluation. Limitations: no limitations Course Vital Signs 03/19/21 03/19/21 03/19/21 13:53 14:30 16:00 Temperature 97.8 F Pulse Rate 113 H 109 H 105 H Respiratory 20 20 16 Rate Blood Pressure 138/65 138/65 129/72 O2 Sat by Pulse 98 97 98 Oximetry Medical Decision Making - Medical Decision Making I thought the patient Espinoza's palsy but I spoke with Dr. Anderson he came down and saw the patient he was in agreement I then spoke with Dr. Ochoa and she agreed that the patient should get valacyclovir and prednisone. - Lab Data Lab Results 03/19/21 Range/Units 14:06 POC Glucose (mg/dL) 89 (75-99) mg/dL POC Glu Second Chef ID Tania Garduno Disposition Clinical Impression: Espinoza's palsy Disposition: HOME SELF-CARE Condition: Good Instructions (If sedation given, give patient instructions): Espinoza Palsy (ED) Additional Instructions: Take valacyclovir and prednisone as prescribed Is patient prescribed a controlled substance at d/c from ED?: No Referrals: Nonstaff,Physician [Primary Care Provider] - 1-2 days Time of Disposition: 16:26
[2021-03-19 16:18] VITALS: BP 129/72; PULSE 105; RESP 16
--- NOTE | 2021-03-19 19:54 | P.CNNES ---
History of Present Illness Consult date: 03/19/21 Requesting physician: Donnie Doty Reason for Consult: Possible Espinoza's palsy, History of Present Illness: Patient is a 30-year-old female, who is currently 6 months , came to the hospital for left facial weakness. Neurology consulted to rule out Espinoza's palsy. Patient states that for last couple of days, she was having weird taste sensation in the mouth. She was feeling metallic taste. She also noticed an ear ache, mainly involving behind and below the left ear. Also her left eye has been watering. This morning patient noticed an itch in the left eye, but she noted. At around 12:30 PM while talking, her face felt weird. When she smiled, only she was able to move right half of the face. Patient has history of factor V Leiden mutation, therefore got concerned if she was having a stroke therefore came to the hospital. Patient denies any previous history of Espinoza's palsy. Denies any symptoms elsewhere in the body. Does have mild headache, but not very significant. She does take aspirin 81 mg daily because of her history of factor V Leiden mutation, taking aspirin even through the . She has history of 2 miscarriages. Review of Systems As above. All other review of systems unremarkable. Past Medical History Past Medical History: Blood Disorder Additional Past Medical History / Comment(s): Factor V. NO HEART BEAT ON ULTRASOUND 01/04/20 History of Any Multi-Drug Resistant Organisms: None Reported Past Surgical History: Section Additional Past Surgical History / Comment(s): D&C Past Anesthesia/Blood Transfusion Reactions: No Reported Reaction Past Psychological History: No Psychological Hx Reported Smoking Status: Never smoker Past Alcohol Use History: None Reported Past Drug Use History: None Reported - Past Family History Father Family Medical History: Blood Disorder Additional Family Medical History / Comment(s): Heart disease Medications and Allergies Home Medications Medication Instructions Recorded Confirmed Type Aspirin [Adult Low Dose Aspirin EC] 81 mg PO 06/21/20 History Allergies Allergy/AdvReac Type Severity Reaction Status Date / Time No Known Allergies Allergy Verified 01/06/20 15:11 Physical Examination - Vital Signs Vital Signs: Vital Signs Temp Pulse Resp BP Pulse Ox 03/19/21 13:53 97.8 F 113 H 20 138/65 98 Intake and Output 03/19/21 03/19/21 03/19/21 06:59 14:59 22:59 Other: Weight 108.862 kg Patient is a young female, in no acute distress. Patient is alert awake oriented to time place and person. Speech and language functions are normal. No aphasia or dysarthria. Attention, concentration and fund of knowledge is adequate. On cranial examination, pupils are equal, round and reacting to light and accommodation, visual vargas are full on confrontation, extraocular muscles are intact with no nystagmus. Patient has mild left facial weakness, peripheral type, including the upper and lower part, tongue protrudes to the midline. Palatal elevation and sensation normal, uvula is midline, hearing and shoulder shrug normal, facial sensation normal. On muscle strength testing, there is no pronator drift and the strength is normal in arms and legs distally and proximally. Deep tendon reflexes are 1 in all over and plantars downgoing. Sensory to touch is equal with no neglect. Cerebellar function showed no ataxia for qzcymc-ne-astu testing. No dysdiadochokinesia. Tone and bulk of muscles normal. Gait normal. On general examination, there is no carotid bruit or murmur, S1-S2 audible. Abdomen is soft nontender. Chest is clear. Peripheral pulses are present. No edema. Assessment and Plan Assessment: * Left Espinoza's palsy, partial. * , 6 months. Plan: * From neurology standpoint, would recommend prednisone 60 mg daily for 5 days and then decrease by 10 mg daily and it off. Also a course of acyclovir, or Valtrex for 7 days (whichever is safe from standpoint). * Discussed with Dr. Doty, ED physician. Recommended to speak to the OB and have them decide for clearance for these medications. * No other workup needed from neurology standpoint. * Patient was informed that the symptoms can get worse over the next few days before starts improving. * Patient was recommended to follow up with a neurologist if the symptoms persist.
== END 2021-03-19 16:29 | disposition home or self-care (01) ==
LOC: EC 13:51
DX: O99.351 Diseases of the nervous system complicating pregnancy, first trimester (principal); G51.0 Bell's palsy; Z3A.01 Less than 8 weeks gestation of pregnancy
CPT/HCPCS: 36415; 99283; 99285

== ENCOUNTER 2021-06-14 12:59 | Observation (INO) | payer OTHER ==
[2021-06-14] MEDS ORDERED: ONDANSETRON 4 MG/2 ML VIAL IVP STA (13:31)
[2021-06-14] MEDS: LACTATED RINGERS 1,000 ML IV SCH ×4 (13:48→18:55)
[2021-06-14 14:10] LABS: Basophils % (A) 0 %; Eosinophils % (A) 0 %; Lymphocytes # (A) 0.8 k/uL (1.0-4.8); Lymphocytes % (A) 7 %; MCH 29.4 pg (25.0-35.0); MCHC 32.4 g/dL (31.0-37.0); MCV 90.6 fL (80.0-100.0); Monocytes # (A) 0.4 k/uL (0-1.0); Monocytes % (A) 3 %; Neutrophils # (A) 10.4 k/uL (1.3-7.7); Neutrophils % (A) 87 %; Platelet Count 335 k/uL (150-450); RBC 4.08 m/uL (3.80-5.40); RDW 13.9 % (11.5-15.5); WBC 11.9 k/uL (3.8-10.6)
[2021-06-14 14:18] LABS: Appearance,Urine Cloudy (Clear); Bacteria,Urine Rare /hpf; Bilirubin,Urine Negative (Negative); Blood,Urine Negative (Negative); Color,Urine Yellow; Glucose,Urine (UA) Negative (Negative); Ketones,Urine 4+ (Negative); Leukocyte Esterase,Urine Trace (Negative); Mucus,Urine Many /hpf; Nitrite,Urine Negative (Negative); Protein,Urine 1+ (Negative); RBC,Urine 2 /hpf (0-5); Specific Gravity,Urine 1.033 (1.001-1.035); Squamous Epithelial Cell,Urine 19 /hpf (0-4); WBC,Urine 5 /hpf (0-5)
[2021-06-14 14:24] LABS: ALT 20 U/L (4-34); AST 24 U/L (14-36); African American GFR (CKD) >90 (>60 ml/min/1.73 sqM); Albumin 3.3 g/dL (3.5-5.0); Alkaline Phosphatase 128 U/L (38-126); Anion Gap 8 mmol/L; Blood Urea Nitrogen 5 mg/dL (7-17); Calcium 8.9 mg/dL (8.4-10.2); Carbon Dioxide 18 mmol/L (22-30); Chloride 105 mmol/L (98-107); Glucose 88 mg/dL (74-99); Non-African American GFR(CKD) >90 (>60 ml/min/1.73 sqM); Potassium 3.9 mmol/L (3.5-5.1); Sodium 131 mmol/L (137-145); Total Bilirubin 0.4 mg/dL (0.2-1.3); Total Protein 6.4 g/dL (6.3-8.2)
[2021-06-14] MEDS ORDERED: ONDANSETRON 4 MG/2 ML VIAL IVP PRN (17:48)
[2021-06-14] MEDS ORDERED: PROMETHAZINE SUPPOSITORY 25 MG SUPP RECTAL PRN (17:49)
[2021-06-14] MEDS ORDERED: diphenhydrAMINE 50 MG/ML 1 ML VIAL IVP PRN (18:14)
[2021-06-14] MEDS ORDERED: ACETAMINOPHEN TAB 500 MG TAB PO PRN (18:51)
[2021-06-14 20:13] VITALS: RESP 16
[2021-06-15] MEDS ORDERED: METOCLOPRAMIDE 5 MG/ML 2 ML VIAL IVP SCH (00:30)
[2021-06-15] MEDS: METOCLOPRAMIDE 5 MG/ML 2 ML VIAL IVP PRN ×2 (00:42→08:52)
[2021-06-15] MEDS: LACTATED RINGERS 1,000 ML IV SCH ×2 (01:45→03:35)
--- NOTE | 2021-06-15 09:15 | P.HPOB ---
History of Present Illness H&P Date: 06/15/21 Chief Complaint: IUP @ 34 weeks, n/v Set 30-year-old at 34 weeks of that presented to triage yesterday with complaints of nausea and vomiting throughout the day. Patient was hydrated with IV fluids and given Zofran. Patient felt better initially then nausea returned. Urine dipstick showing 4+ ketones. Patient was admitted for observation and IV hydration. Patient notes good movement, heart tones were noted to be reassuring for gestational age, she was not shannan. Patient did receive Zofran, Phenergan suppository, IV Reglan. Patient states the IV Reglan was the best for her and after she received her nausea and vomiting stopped, she was able to get some sleep. She is feeling much improved this morning. Review of Systems Constitutional: Denies chills, Denies fatigue, Denies fever Ears, nose, mouth and throat: Denies headache Cardiovascular: Denies leg edema Gastrointestinal: Reports diarrhea, Reports nausea, Reports vomiting, Denies constipation Genitourinary: Reports Past Medical History Past Medical History: Blood Disorder Additional Past Medical History / Comment(s): Factor V. NO HEART BEAT ON ULTRASOUND 01/04/20 History of Any Multi-Drug Resistant Organisms: None Reported Past Surgical History: Section Additional Past Surgical History / Comment(s): D&C Past Anesthesia/Blood Transfusion Reactions: No Reported Reaction Past Psychological History: No Psychological Hx Reported Smoking Status: Never smoker Past Alcohol Use History: None Reported Additional Past Alcohol Use History / Comment(s): QUIT SOKING 3 MONTHS AGO Past Drug Use History: None Reported - Past Family History Father Family Medical History: Blood Disorder Additional Family Medical History / Comment(s): Heart disease Medications and Allergies Home Medications Medication Instructions Recorded Confirmed Type Aspirin [Adult Low Dose Aspirin EC] 81 mg PO DAILY 06/21/20 06/14/21 History Allergies Allergy/AdvReac Type Severity Reaction Status Date / Time No Known Allergies Allergy Verified 06/14/21 13:21 Exam Osteopathic Statement: *. No significant issues noted on an osteopathic st ructural exam other than those noted in the History and Physical/Consult. Vital Signs Temp Pulse Resp BP Pulse Ox 06/15/21 03:42 97.9 F 122 H 16 117/57 96 06/15/21 00:00 115 H 16 128/64 06/14/21 20:00 98.8 F 119 H 16 125/60 98 06/14/21 18:46 130 H 06/14/21 18:13 98 F 118 H 16 130/60 98 06/14/21 13:20 98.1 F 130 H 20 132/65 97 Intake and Output 06/14/21 06/15/21 06/15/21 22:59 06:59 14:59 Other: # Voids 1 2 # Bowel Movements 1 Weight 113.398 kg Targeted physical exam is performed on this date and general this is a female in no acute distress, breathing is nonlabored, heart has a regular rate and rhythm, abdomen is gravid, heart tones are noted to be category 1 contractions are appreciated. Cervical exam is deferred. Results Result Diagrams: 06/14/21 13:52 06/14/21 13:52 Abnormal Lab Results - Last 24 Hours (Table) 06/14/21 06/14/21 06/14/21 Range/Units 13:52 13:52 13:52 WBC 11.9 H (3.8-10.6) k/uL Neutrophils # 10.4 H (1.3-7.7) k/uL Lymphocytes # 0.8 L (1.0-4.8) k/uL Sodium 131 L (137-145) mmol/L Carbon Dioxide 18 L (22-30) mmol/L BUN 5 L (7-17) mg/dL Creatinine 0.44 L (0.52-1.04) mg/dL Alkaline Phosphatase 128 H (38-126) U/L Albumin 3.3 L (3.5-5.0) g/dL Urine Appearance Cloudy H (Clear) Urine Protein 1+ H (Negative) Urine Ketones 4+ H (Negative) Ur Leukocyte Esterase Trace H (Negative) Ur Squamous Epith Cells 19 H (0-4) /hpf Urine Bacteria Rare H (None) /hpf Urine Mucus Many H (None) /hpf Assessment and Plan (1) 34 weeks gestation of Current Visit: Yes Status: Acute Code(s): Z3A.34 - 34 WEEKS GESTATION OF SNOMED Code(s): 61248681 (2) Nausea and vomiting during Current Visit: Yes Status: Acute Code(s): O21.9 - VOMITING OF , UNSPECIFIED SNOMED Code(s): 38250186 Plan: 30-year-old at 34 weeks of that was observed overnight for severe nausea and vomiting. Patient had noted 4+ ketones in her urine. Patient was hydrated with IV fluids, given Zofran, Phenergan suppositories, Reglan. Patient states the Reglan worked the best. Patient is feeling much improved this morning. We'll plan discharge home with follow-up on Friday as scheduled. Return labor precautions are reviewed, kick counts are discussed. Questions are answered.
--- NOTE | 2021-06-15 09:17 | P.DS ---
Providers Date of admission: 06/14/21 18:00 Expected date of discharge: 06/15/21 Attending physician: Rosalva Ochoa Primary care physician: Rosalva Ochoa - Discharge Diagnosis(es) (1) 34 weeks gestation of Current Visit: Yes Status: Acute (2) Nausea and vomiting during Current Visit: Yes Status: Acute Hospital Course: This is a 30-year-old at 34 weeks of gestation that presented to labor and delivery last evening with complaints of severe nausea and vomiting throughout the day. She states she was unable to keep down water. Patient was initially hydrated with lactated Ringer's and given Zofran. She did feel better initially then nausea and vomiting returned, patient was treated with Phenergan suppository which relieved her symptoms for approximately 1 hour. Nausea and vomiting continued and she was given IV Reglan. Patient was observed at that point given the length of time she had been in triage. Patient states she did feel better after the Reglan was administered. Patient is feeling much better this morning. NSTs have been category 1, she is not shannan. She notes good movement. Patient Condition at Discharge: Good Plan - Discharge Summary New Discharge Prescriptions: No Action Aspirin [Adult Low Dose Aspirin EC] 81 mg PO DAILY Discharge Medication List Aspirin [Adult Low Dose Aspirin EC] 81 mg PO DAILY 06/21/20 [History] Follow up Appointment(s)/Referral(s): Rosalva Ochoa DO [Primary Care Provider] - 3 Days (as scheduled ) Patient Instructions/Handouts: Nausea and Vomiting in (ED), Nausea and Vomiting in (GEN) Activity/Diet/Wound Care/Special Instructions: Discussed BRAT diet, patient states understanding. Encouraged increased oral hydration. Discharge Disposition: HOME SELF-CARE
[2021-06-15 10:10] VITALS: BP 115/57; PULSE 111; TEMP 97.2
== END 2021-06-15 10:40 | disposition home or self-care (01) ==
LOC: FBPOP 12:59 → 4FBP 18:00
PROVIDERS: ADMIT Obstetrics & Gynecology Obstetrics; ATTEND Obstetrics & Gynecology Obstetrics
DX: O21.2 Late vomiting of pregnancy (principal); O28.8 Other abnormal findings on antenatal screening of mother; Z3A.34 34 weeks gestation of pregnancy; Z20.822 Contact with and (suspected) exposure to COVID-19; Z79.82 Long term (current) use of aspirin; Z98.891 History of uterine scar from previous surgery; Z87.891 Personal history of nicotine dependence; Z82.49 Family history of ischemic heart disease and other diseases of the circulatory system
CPT/HCPCS: 59025; 96376 ×2; 96361; 96374; 96375 ×2; 80053; 85025; 81001; 87635; G0463; G0378; J1200; J2765; J2405; 99214

== ENCOUNTER 2021-07-13 06:08 | Inpatient (IN) | payer OTHER ==
[2021-07-09 14:01] VITALS: BMI 40.7
[2021-07-13] MEDS ORDERED: CARBOPROST TROMETHAMINE 250 MCG/ML 1 ML AMP IM PRN (06:22)
[2021-07-13] MEDS ORDERED: METHYLERGONOVINE 0.2 MG/ML 1 ML AMP IM PRN (06:22)
[2021-07-13] MEDS ORDERED: TERBUTALINE 1 MG/ML VIAL SQ PRN (06:22)
[2021-07-13] MEDS ORDERED: LIDOCAINE 0.5% (PF) 5 MG/ML (50 ML SDV) SQ PRN (06:22)
[2021-07-13] MEDS ORDERED: OXYTOCIN 10 UNIT/ML 1 ML VIAL IM PRN (06:22)
[2021-07-13] MEDS: LACTATED RINGERS 1,000 ML IV SCH ×4 (06:36→18:24)
[2021-07-13 06:50] LABS: Basophils % (A) 0 %; Eosinophils # (A) 0.2 k/uL (0-0.7); Eosinophils % (A) 2 %; HCT 35.1 % (34.0-46.0); Lymphocytes # (A) 2.1 k/uL (1.0-4.8); Lymphocytes % (A) 17 %; MCH 28.8 pg (25.0-35.0); MCHC 34.2 g/dL (31.0-37.0); Mean Platelet Volume 7.9; Monocytes # (A) 0.4 k/uL (0-1.0); Monocytes % (A) 3 %; Neutrophils # (A) 9.6 k/uL (1.3-7.7); Neutrophils % (A) 77 %; Platelet Count 411 k/uL (150-450); RBC 4.16 m/uL (3.80-5.40); RDW 13.9 % (11.5-15.5); WBC 12.5 k/uL (3.8-10.6)
[2021-07-13 07:05] LABS: MCV 84.4 fL (80.0-100.0)
[2021-07-13] MEDS ORDERED: CITRIC ACID-SODIUM CITRATE 15 ML CUP PO ONE (07:28)
[2021-07-13] MEDS ORDERED: ONDANSETRON 4 MG/2 ML VIAL ONE (08:10)
[2021-07-13] MEDS ORDERED: ePHEDrine 50 MG/ML 1 ML AMP ONE (08:10)
[2021-07-13] MEDS ORDERED: OXYTOCIN 30 UNITS/500 ML NS BAG IV ONE (08:10)
[2021-07-13] MEDS ORDERED: NALBUPHINE 10 MG/ML (1 ML AMP) ONE (08:10)
[2021-07-13] MEDS ORDERED: MORPHINE SULFATE (PF) 0.3 MG/0.3 ML SYR ONE (08:10)
[2021-07-13] MEDS ORDERED: diphenhydrAMINE 50 MG/ML 1 ML VIAL IVP PRN ×2 (09:08)
[2021-07-13] MEDS ORDERED: SIMETHICONE 80 MG CHEWABLE PO PRN (09:08)
[2021-07-13] MEDS ORDERED: ONDANSETRON 4 MG/2 ML VIAL IVP PRN (09:08)
[2021-07-13] MEDS ORDERED: NALOXONE 0.4 MG/ML 1 ML VIAL IV PRN (09:08)
[2021-07-13] MEDS ORDERED: diphenhydrAMINE 25 MG CAP PO PRN (09:08)
[2021-07-13] MEDS ORDERED: METOCLOPRAMIDE 5 MG/ML 2 ML VIAL IVP PRN (09:08)
[2021-07-13] MEDS ORDERED: ZOLPIDEM 5 MG TAB PO PRN (09:08)
[2021-07-13] MEDS ORDERED: diphenhydrAMINE 50 MG CAP PO PRN (09:08)
--- NOTE | 2021-07-13 09:13 | P.HPOB ---
History of Present Illness H&P Date: 07/13/21 Chief Complaint: IUP @ 39 0/7, h/o c/s x 1, desires repeat this is a 31-year-old 4 para 10-1 at 39-0/7 weeks that presents for repeat section. Patient has been receiving routine care with myself which has been essentially uncomplicated. Prior was done for arrest of labor. Patient has known factor V Leiden, history of Espinoza's palsy, and a large for gestational age with her first . Patient does note good movement today, denies vaginal bleeding or contractions. has consistently measured greater than the 99th percentile on weight on ultrasound. on bloodwork this patient has a blood type of A+, rubella status immune, hepatitis B surface antigen negative, HIV negative, RPR nonreactive, group beta strep culture negative. Review of Systems Constitutional: Reports fatigue, Denies chills, Denies fever Ears, nose, mouth and throat: Denies headache Cardiovascular: Reports leg edema Respiratory: Denies dyspnea Gastrointestinal: Denies nausea, Denies vomiting Genitourinary: Reports Past Medical History Past Medical History: Blood Disorder Additional Past Medical History / Comment(s): Factor V leiden, bells palsy History of Any Multi-Drug Resistant Organisms: None Reported Past Surgical History: Section Additional Past Surgical History / Comment(s): D&C x 2, gall bladder removal Past Anesthesia/Blood Transfusion Reactions: No Reported Reaction, Postoperative Nausea & Vomiting (PONV) Past Psychological History: No Psychological Hx Reported Smoking Status: Former smoker Past Alcohol Use History: None Reported Additional Past Alcohol Use History / Comment(s): Pt reports she stopped smoking as soon as she found out she was Past Drug Use History: None Reported - Past Family History Mother Family Medical History: Blood Disorder, CVA/TIA Additional Family Medical History / Comment(s): Leiden factor V, 2 mini strokes Father Family Medical History: Myocardial Infarction ([place]), Pulmonary Embolus Additional Family Medical History / Comment(s): Heart disease Medications and Allergies Home Medications Medication Instructions Recorded Confirmed Type Aspirin [Adult Low Dose Aspirin EC] 81 mg PO DAILY 06/21/20 07/13/21 History Pnv No.95/Ferrous Fum/Folic AC 1 each PO DAILY 07/09/21 07/13/21 History [ Multivitamin Tablet] Allergies Allergy/AdvReac Type Severity Reaction Status Date / Time No Known Allergies Allergy Verified 07/13/21 06:21 Exam Osteopathic Statement: *. No significant issues noted on an osteopathic structural exam other than those noted in the History and Physical/Consult. Vital Signs Temp Pulse Resp BP Pulse Ox 07/13/21 06:20 97.3 F L 115 H 18 138/75 97 Intake and Output 07/12/21 07/13/21 07/13/21 22:59 06:59 14:59 Other: Weight 117.934 kg targeted physical exam is performed in this date in general this a well-n ourished well-developed female in no acute distress, breathing is noted to be nonlabored, heart has regular rate and rhythm, abdomen is gravid, cervical exam is deferred, heart tones are noted to be category 1 and she is not shannan. Results Result Diagrams: 07/13/21 06:23 Abnormal Lab Results - Last 24 Hours (Table) 07/13/21 Range/Units 06:23 WBC 12.5 H (3.8-10.6) k/uL Neutrophils # 9.6 H (1.3-7.7) k/uL Assessment and Plan (1) Term Current Visit: Yes Status: Acute Code(s): Z34.90 - ENCNTR FOR SUPRVSN OF NORMAL , UNSP, UNSP TRIMESTER SNOMED Code(s): 12417345 (2) H/O section Current Visit: Yes Status: Acute Code(s): Z98.891 - HISTORY OF UTERINE SCAR FROM PREVIOUS SURGERY SNOMED Code(s): 856454337 Plan: this 31-year-old 4 para 10-1 at 39 0/7 weeks presents for repeat section. Patient is counseled on risks of surgery including but not limited to infection, bleeding, damage to bladder, bowel, injury. Patient states understanding and wishes to proceed. Patient was taken back to the operating suite for scheduled repeat section.
--- NOTE | 2021-07-13 09:16 | P.OP ---
Date of Procedure: 07/13/21 Preoperative Diagnosis: IUP at 39-0/7 weeks, history of 1, desires repeat Postoperative Diagnosis: same Procedure(s) Performed: repeat section Anesthesia: spinal Surgeon: Rosalva Ochoa Hemmer Automatic #1: Jacquelyn Melendrez Estimated Blood Loss (ml): 431 IV fluids (ml): 900 Urine output (ml): 100 Pathology: none sent Condition: stable Disposition: observation Indications for Procedure: 31-year-old at 39-0/7 weeks presents for repeat section. Patient is a prior history of a secondary to arrest of labor, patient desires repeat. Operative Findings: normal uterus tubes and ovaries were appreciated. Viable male infant delivered at 835, weight of 8 lbs. 1 oz., Apgars of 8 and 9 at one and 5 minutes respectively. Description of Procedure: The patient was prepped and draped in the usual fashion after spinal anesthesia was administered by Dr. Ramírez. A Pfannenstiel incision was made and extended of the abdominal cavity without difficulty. The bladder peritoneum was elevated and incised and reflected distally. A 2 cm incision was made in the transverse plane of the lower uterine segment to enter the uterus at which time clear fluid was noted. The incision was extended in both directions using the bandage scissors. The head was encountered within the field and delivered up and through the incision where the nose and mouth were thoroughly suctioned. Remainder of the was delivered onto the surgical field where the cord was doubly clamped, cut, and the was passed for resuscitative measures with weight and Apgars as noted above. A segment of cord was then doubly clamped, cut, and set aside should cord gases become necessary. The placenta was delivered manually, intact, and was grossly normal with a grossly normal three- vessel cord. The uterus was exteriorized and the interior cavity of the uterus swept of any remaining placental and membranous fragments with a laparotomy sponge. The margins of the incision were grasped with Allis clamps and the incision closed in 2 layers. First layer was a running locking layer of 0 Vicryl from margin to margin followed by a second layer of imbricating 0 Vicryl from margin to margin. bleeding was noted on the midportion of the hysterotomy incision therefore a [id number] suture was used to obtain hemostasis. Any small points of bleeding were then made hemostatic with the Bovie. Once hemostasis was achieved, the posterior cul-de-sac was suctioned with a guard and the uterine and ovarian findings are as noted above. The uterus was replaced within the abdominal cavity and the gutters swept of any remaining blood fluid or clot. The incision was again reexamined and hemostasis was noted to be excellent. Any small point of bleeding were made hemostatic with the Bovie. Once hemostasis was achieved the parietal peritoneum was loosely reapproximated. The layer of muscles were examined and made hemostatic with the Bovie. Attention was then turned to the fascia which was closed with 2 running stitches of 0 Vicryl proceeding from the lateral margins to the midpoint. The subcutaneous tissues were irrigated, made hemostatic with the Bovie, and reapproximated with a running stitch of 30 plain catgut. The skin was reapproximated with 4-0 Vicryl. Estimated blood loss for the case was approximately 431 mL. All sponge instrument and needle counts are correct. There were no complications. The patient tolerated the procedure well and proceeded to the recovery room in stable condition. Both mother and are resting comfortably in recovery.
[2021-07-13] MEDS: OXYTOCIN 30 UNITS/500 ML NS 30 UNIT in SALINE 1 500ML.BAG IV SCH ×2 (09:29→11:30)
[2021-07-13 10:46] VITALS: RESP 16
[2021-07-13] MEDS: ACETAMINOPHEN IV (For NPO) 1,000 MG in EMPTY BAG 1 BAG IVPB SCH ×2 (11:30→21:09)
[2021-07-13] MEDS ORDERED: IBUPROFEN IV 800 MG in SODIUM CHLORIDE 0.9% 250 ML IV PRN (16:00)
[2021-07-13] MEDS ORDERED: IBUPROFEN IV 800 MG in SODIUM CHLORIDE 0.9% 250 ML IV SCH (18:00)
[2021-07-13] MEDS: IBUPROFEN 600 MG TAB PO SCH ×2 (18:23→23:58)
[2021-07-13] MEDS: SENNOSIDES-DOCUSATE SODIUM 1 EACH TAB PO SCH (19:45)
[2021-07-13] MEDS: ACETAMINOPHEN TAB 500 MG TAB PO SCH (21:12)
[2021-07-14] MEDS: LACTATED RINGERS 1,000 ML IV SCH (02:23)
[2021-07-14] MEDS: ACETAMINOPHEN TAB 500 MG TAB PO SCH ×3 (04:27→16:44)
[2021-07-14 06:20] LABS: Basophils % (A) 0 %; Eosinophils # (A) 0.2 k/uL (0-0.7); Eosinophils % (A) 1 %; HCT 30.9 % (34.0-46.0); HGB 10.3 gm/dL (11.4-16.0); Lymphocytes # (A) 2.2 k/uL (1.0-4.8); Lymphocytes % (A) 17 %; MCH 28.4 pg (25.0-35.0); MCHC 33.2 g/dL (31.0-37.0); MCV 85.6 fL (80.0-100.0); Mean Platelet Volume 7.7; Monocytes # (A) 0.6 k/uL (0-1.0); Monocytes % (A) 4 %; Neutrophils # (A) 10.1 k/uL (1.3-7.7); Neutrophils % (A) 77 %; Platelet Count 359 k/uL (150-450); RBC 3.61 m/uL (3.80-5.40); WBC 13.1 k/uL (3.8-10.6)
[2021-07-14] MEDS: IBUPROFEN 600 MG TAB PO SCH ×3 (06:47→14:49)
--- NOTE | 2021-07-14 07:21 | P.PN ---
Progress Note - Text Progress Note Date: 07/14/21 patients status post C/S under spinal anesthesia ,intrathecal duramorph given for post op analgesia, she is doing well, no anesthesia related complications
[2021-07-14] MEDS: SENNOSIDES-DOCUSATE SODIUM 1 EACH TAB PO SCH (08:28)
--- NOTE | 2021-07-14 09:28 | P.DS ---
Providers Date of admission: 07/13/21 06:08 Expected date of discharge: 07/14/21 Attending physician: Rosalva Ochoa Primary care physician: Stated None Hospital Course: This is a 31-year-old female 4 para 10-1 EDC 07/20/2021 at 39 weeks gestation who presented for repeat low transverse section, for large for gestational age infant and previous , declining . Rupee strep cultures were negative. Blood type A+. Rubella status immune. Please see dictated history and physical for details. Patient underwent a repeat low transverse section, giving to a liveborn male infant with scores of 8 and 9 at one and 5 minutes respectively. Infant weighed 8 lbs. 1 oz. or 3670 g. There was a nuchal cord 1 that was reduced. Please see dictated operative note for details. This patient is doing exceptionally well. The incision is clean and dry, intact, Steri-Strips applied. Fundus is firm, midline, symmetric, 18 week size. Patient has very minimal pain. Breast-feeding is going well. Circumcision on her infant has been performed. Patient is requesting discharge home later today after dinner, and was judged to be in very good condition for same. Patient will follow-up with her primary sale professional digital marketing in the office in 2 weeks for incision check. She will call with any fevers shakes or chills, foul smelling or copious lochia, with the past with any pain not alleviated by [id number] products, or indeed with any concerns. [place] will follow-up with system analyst as per recommendations. Assessment: Doing well first postoperative day Patient Condition at Discharge: Good Plan - Discharge Summary Discharge Rx Participant: No New Discharge Prescriptions: No Action Aspirin [Adult Low Dose Aspirin EC] 81 mg PO DAILY Pnv No.95/Ferrous Fum/Folic AC [ Multivitamin Tablet] 1 each PO DAILY Discharge Medication List Aspirin [Adult Low Dose Aspirin EC] 81 mg PO DAILY 06/21/20 [History] Pnv No.95/Ferrous Fum/Folic AC [ Multivitamin Tablet] 1 each PO DAILY 07/09/21 [History] Follow up Appointment(s)/Referral(s): Rosalva Ochoa DO [Doctor of Osteopathic Medicine] - 2 Weeks
[2021-07-14 16:44] VITALS: BP 108/70; PULSE 98; TEMP 97.7
== END 2021-07-14 16:45 | disposition home or self-care (01) | DRG 787 ==
LOC: 4FBP 06:08
PROVIDERS: ADMIT Obstetrics & Gynecology Obstetrics; ATTEND Obstetrics & Gynecology Obstetrics
PROC: 10D00Z1 Extraction of Products of Conception, Low, Open Approach (ICD-10-PCS; principal; 2021-07-13 08:00)
DX: O34.211 Maternal care for low transverse scar from previous cesarean delivery (principal); D68.51 Activated protein C resistance; O99.12 Other diseases of the blood and blood-forming organs and certain disorders involving the immune mechanism complicating childbirth; O36.63X0 Maternal care for excessive fetal growth, third trimester, not applicable or unspecified; O69.81X0 Labor and delivery complicated by cord around neck, without compression, not applicable or unspecified; Z37.0 Single live birth; Z3A.39 39 weeks gestation of pregnancy; Z79.82 Long term (current) use of aspirin; Z87.891 Personal history of nicotine dependence
CPT/HCPCS: 85025; 86850; 86900; 86901

== ENCOUNTER → 2021-07-17 | Day surgery (SDC) | payer OTHER ==
[~2021-07-17] MED LIST changes: +.fentaNYL (PF) 50 MCG/ML 2 ML AMP ONE; -DEXAMETHASONE SOD PHOSPHATE 4 MG/ML 1 ML VIAL IV ONE; +IV FLUID CONTINUATION 800 ML IV ONE; +LACTATED RINGERS 1,000 ML IV ONE; -LACTATED RINGERS 1,000 ML IV SCH; +LIDOCAINE 1% (10MG/ML) FOR IV START INTRADERMA ONE; -LIDOCAINE 1% (10MG/ML) FOR IV START INTRADERMA PRN; +MIDAZOLAM 2 MG/2 ML VIAL ONE; -ONDANSETRON 4 MG/2 ML VIAL IVP ONE
[2021-07-17 10:18] VITALS: RESP 16; TEMP 9708
--- NOTE | 2021-07-17 10:47 | P.PCN ---
Date of Procedure: 07/17/21 Procedure(s) Performed: Operation= epidural blood patch. preoperative diagnosis= post dural puncture headache. Post operative diagnoses= post dural puncture headache. Anesthesia= IV sedation with Versed 1 and fentanyl,100 mcg , and local infiltration with lidocaine 1% 3 mL. Condition= stable. Complications= none. Indication for the procedure= this patient had Ceserean sections under spinal anesthesia ,done few days ago, and currently patient complaining of severe positional headache, improved with the supine position and increased with the sitting ,and standing position, and she is diagnosed with post dural puncture headache, there is no focal neurological deficit, no fever,, and no neck stiffness, patient is a good candidate to have epidural blood patch, because the conservative treatment failed, risks and benefits of the procedure discussed with the patient and agreed with proceeding, Description of the procedure= patient in sitting position, back lumbar area prepped with chlorhexidine x3 times then the back draped , then L5 S1 interlaminar space local infiltration of the skin and subcu tissues with lidocaine 1% 3 mL, then 20-gauge Tuohy needle, advanced at the L5-S1 interlaminar space, as positive loss of resistance to normal saline, was no heme and no paresthesia, no cerebrospinal fluid, then after that 20 mL of autologous blood taken under strict sterile technique from the antecubital area was prepped with the chlorhexidine 3 times, and using Angiocath 20 ML of the block taken from theleft antecubital vein under strict sterile technique, then the blood injected in the epidural space after negative aspiration for heme or cerebrospinal fluid, and there was no paresthesia, and after 20 ML of the blood injected in the epidural space and headache improved, and patient tolerated the procedure well without any complication and patient discharged home after discharge criteria met and patient will follow up with the pain clinic in 2-4 weeks
[2021-07-17 11:08] VITALS: BP 113/70; PULSE 81
== END ==
LOC: ORPAIN 09:59
PROVIDERS: ATTEND Anesthesiology
DX: G97.1 Other reaction to spinal and lumbar puncture (principal)
CPT/HCPCS: 81025; 62273; J2250; J3010; 99152